=== PATIENT | male | born 1945 | race Caucasian/White ===

== ENCOUNTER 2019-12-29 14:18 | Emergency (ER) | payer OTHER, MEDICARE ==
[2019-12-29] MEDS ORDERED: Albuterol/Ipratropium 3.0-0.5 MG/3 ML Neb Soln NEB ONE (15:01)
[2019-12-29] MEDS ORDERED: methylPREDNISolone Sodium Succinate 125 MG/2 ML SDV IVPUSH ONE (15:01)
--- NOTE | 2019-12-29 15:07 | EDM.PDOC ---
ED HPI GENERAL MEDICAL PROBLEM - General Stated Complaint: [facility] Time Seen by Provider: 12/29/19 15:03 Source of Information: Reports: Patient History Limitations: Reports: No Limitations - History of Present Illness INITIAL COMMENTS - FREE TEXT/NARRATIVE: 5 days h/o fever cough congestion smoker body aches SOB, has neb and many Rx at home. - Related Data Allergies Allergy/AdvReac Type Severity Reaction Status Date / Time No Known Allergies Allergy Verified 12/29/19 14:56 Home Meds: Home Meds Cyclobenzaprine [Flexeril] 10 mg PO DAILY PRN 04/23/14 [History] Enalapril [Vasotec] 5 mg PO BID 04/23/14 [History] Sertraline [Zoloft] 100 mg PO DAILY 04/23/14 [History] Albuterol Sulfate [Proair Hfa] 2 puff INH Q6H PRN 12/29/19 [History] Albuterol [Proventil Neb Soln] 1.25 mg NEB Q6H 12/29/19 [History] Budesonide/Formoterol Fumarate [Budesonide-Formoterol 160-4.5] 2 puff INH BID [History] Diclofenac Sodium [Voltaren 1% Gel] 1 applic TOP QID PRN 12/29/19 [History] Finasteride 5 mg PO DAILY 12/29/19 [History] Gabapentin [Neurontin] 600 mg PO TID 12/29/19 [History] Polyethylene Glycol 3350 [Miralax] 17 gram PO DAILY PRN 12/29/19 [History] guaiFENesin [Guaifenesin] 400 mg PO TID PRN 12/29/19 [History] hydroCHLOROthiazide [Hydrochlorothiazide] 25 mg PO DAILY 12/29/19 [History] ED ROS GENERAL - Review of Systems Review Of Systems: Comprehensive ROS is negative, except as noted in HPI. ED EXAM, GENERAL - Physical Exam Exam: See Below Exam Limited By: No Limitations General Appearance: Alert, WD/WN, Mild Distress, Other (cough spasms) Ears: Hearing Grossly Normal Throat/Mouth: Normal Voice, No Airway Compromise Head: Atraumatic Neck: Non-Tender, Full Range of Motion Respiratory/Chest: No Accessory Muscle Use, Decreased Breath Sounds, Rhonchi, Wheezing Cardiovascular: Regular Rate, Rhythm GI/Abdominal: Soft, Non-Tender Neurological: Alert, Oriented, Normal Cognition, Normal Gait, No Motor/Sensory Deficits Psychiatric: Flat Affect Skin Exam: Warm, Dry, Normal Color Lymphatic: No Adenopathy Course - Vital Signs Last Recorded V/S: Last Vital Signs Temp Pulse 62 12/29/19 15:02 Resp BP Pulse Ox 96 12/29/19 15:02 - Orders/Labs/Meds Orders: Active Orders 24 hr Category Date Time Status RT Aerosol Therapy [RC] ASDIRECTED Care 12/29/19 15:02 Active Chest 2V [CR] Urgent Exams 12/29/19 15:02 Taken CULTURE STREP A CONFIRMATION [] Stat Lab 12/29/19 15:31 Results STREP SCRN A RAPID W CULT CONF [] Stat Lab 12/29/19 15:31 Results Sodium Chloride 0.9% [Normal Saline] 1,000 ml Med 12/29/19 15:15 Active IV ASDIRECTED Medication Orders Sodium Chloride (Normal Saline) 1,000 mls @ 500 mls/hr IV ASDIRECTED BRITNEY Last Admin: 12/29/19 15:52 Dose: 500 mls/hr Labs: Laboratory Tests 12/29/19 12/29/19 12/29/19 Range/Units 15:15 15:15 15:15 WBC 7.8 (5.0-10.0) 10^3/uL RBC 4.92 (4.6-6.2) 10^6/uL Hgb 15.3 (14.0-18.0) g/dL Hct 44.6 (40.0-54.0) % MCV 90.7 (80-100) fL MCH 31.1 (27.0-34.0) pg MCHC 34.3 (33.0-35.0) g/dL Plt Count 203 (150-450) 10^3/uL Neut % (Auto) 69.1 (42.2-75.2) % Lymph % (Auto) 17.5 L (20.5-50.1) % [place] % (Auto) 11.8 H (2-8) % Eos % (Auto) 1.5 (1.0-3.0) % Baso % (Auto) 0.1 (0.0-1.0) % Sodium 137 (135-145) mmol/L Potassium 3.3 L (3.6-5.0) mmol/L Chloride 102 (101-111) mmol/L Carbon Dioxide 26.0 (21.0-31.0) mmol/L Anion Gap 12.3 BUN 18 (7-18) mg/dL Creatinine 1.0 (0.6-1.3) mg/dL Est Cr Clr Drug Dosing TNP Estimated GFR (MDRD) > 60 BUN/Creatinine Ratio 18.00 Glucose 94 (74-105) mg/dL Lactic Acid 1.0 (0.5-2.0) mmol/L Calcium 8.6 (8.4-10.2) mg/dl Total Bilirubin 0.7 (0.2-1.0) mg/dL AST 22 (10-42) IU/L ALT 18 (10-60) IU/L Alkaline Phosphatase 53 (42-121) IU/L Total Protein 7.3 (6.7-8.2) g/dl Albumin 4.0 (3.2-5.5) g/dl Globulin 3.3 Albumin/Globulin Ratio 1.21 Meds: Medications Generic Name Dose Route Start Last Admin Trade Name Freq PRN Reason Stop Dose Admin Sodium Chloride 1,000 mls @ 500 mls/hr 12/29/19 15:15 12/29/19 15:52 Normal Saline IV 500 mls/hr ASDIRECTED BRITNEY Administration Discontinued Medications Generic Name Dose Route Start Last Admin Trade Name Freq PRN Reason Stop Dose Admin Albuterol/Ipratropium 3 ml 12/29/19 15:01 12/29/19 15:14 Duoneb 3.0-0.5 Mg/3 Ml NEB 12/29/19 15:02 3 ml ONETIME ONE Administration Methylprednisolone Sodium Succinate 125 mg 12/29/19 15:01 12/29/19 15:20 Solu-Medrol IVPUSH 12/29/19 15:02 125 mg ONETIME ONE Administration - Re-Assessments/Exams Free Text/Narrative Re-Assessment/Exam: 12/29/19 16:14 results discussed with pt who is feeling much better s/p duoneb + IV solu Departure - Departure Time of Disposition: 16:15 Disposition: Home, Self-Care 01 Condition: Good Clinical Impression: Influenza A, Bronchospasm with bronchitis, acute, Acute bronchospasm due to viral infection - Discharge Information Instructions: Viral Respiratory Infection, [id number] Forms: ED Department Discharge Additional Instructions: 1) rest 2) don't sleep flat at night 3) use neb treatment 4 times daily 4) drink lots of liquids 5) follow up at clinic rx given; medrol dospak tessalon pearles 100mg bid prn x 12 Sepsis Event Note - Focused Exam Vital Signs: Vital Signs Pulse Pulse Ox 12/29/19 15:02 62 96 Date Exam was Performed: 12/29/19 Time Exam was Performed: 16:14 - My Orders Last 24 Hours: My Active Orders 12/29/19 15:02 RT Aerosol Therapy [RC] ASDIRECTED Chest 2V [CR] Urgent 12/29/19 15:15 Sodium Chloride 0.9% [Normal Saline] 1,000 ml IV ASDIRECTED 12/29/19 15:31 CULTURE STREP A CONFIRMATION [RM] Stat STREP SCRN A RAPID W CULT CONF [RM] Stat - Assessment/Plan Last 24 Hours: My Active Orders 12/29/19 15:02 RT Aerosol Therapy [RC] ASDIRECTED Chest 2V [CR] Urgent 12/29/19 15:15 Sodium Chloride 0.9% [Normal Saline] 1,000 ml IV ASDIRECTED 12/29/19 15:31 CULTURE STREP A CONFIRMATION [RM] Stat STREP SCRN A RAPID W CULT CONF [RM] Stat
[2019-12-29] MEDS ORDERED: Sodium Chloride 0.9% 1,000 ML IV SCH (15:15)
[2019-12-29 15:16] VITALS: PULSE 62
[2019-12-29 15:42] LABS: ANION GAP 12.3; CHLORIDE,CL 102 mmol/L (101-111); SODIUM,NA 137 mmol/L (135-145)
[2019-12-29 16:18] VITALS: BP 113/63
== END 2019-12-29 16:48 | disposition home or self-care (01) ==
LOC: DL.ED 14:18
DX: J10.1 Influenza due to other identified influenza virus with other respiratory manifestations (principal); Z79.899 Other long term (current) drug therapy
CPT/HCPCS: 36415; 71046; 80053; 83605; 85025; 87081; 87430; 87804; 94640; 96361; 96374; 99284; J2930; J7030; J7620-GY

== ENCOUNTER 2021-08-11 18:20 | Emergency (ER) | payer OTHER, MEDICARE ==
[2021-08-11 20:15] VITALS: BP 96/55; PULSE 62
[2021-08-11 20:30] LABS: ANION GAP 11.1 mEq/L (7-13)
--- NOTE | 2021-08-11 21:33 | EDM.PDOC ---
ED HPI GENERAL MEDICAL PROBLEM - General Chief Complaint: Respiratory Problem Stated Complaint: COUGHING UP BLOOD Time Seen by Provider: 08/11/21 21:25 Source of Information: Reports: Patient - History of Present Illness INITIAL COMMENTS - FREE TEXT/NARRATIVE: Pt is here for a cough, fevers and shortness of breath that started yesterday. He noted that he just couldn't get warm yesterday and had his bring him extra blankets. He became worried when he coughed up a little blood this evening. He noted his fever was up to 102. He has body aches and nausea. He has been taking over the counter medications for his cold. He had both his COVID vaccines several months ago and is scheduled to get his booster in a month. No known sick contacts or exposure to COVID. He does wear oxygen at home at [facility]. Headache Pain Score (Numeric/FACES): 4 - Related Data Allergies Allergy/AdvReac Type Severity Reaction Status Date / Time No Known Allergies Allergy Verified 08/11/21 18:30 Home Meds: Home Meds Cyclobenzaprine [Flexeril] 10 mg PO DAILY PRN 04/23/14 [History] Enalapril [Vasotec] 5 mg PO BID 04/23/14 [History] Sertraline [Zoloft] 100 mg PO DAILY 04/23/14 [History] Albuterol Sulfate [Proair Hfa] 2 puff INH Q6H PRN 12/29/19 [History] Albuterol [Proventil Neb Soln] 1.25 mg NEB Q6H 12/29/19 [History] Budesonide/Formoterol Fumarate [Budesonide-Formoterol 160-4.5] 2 puff INH BID 12/29/19 [History] Diclofenac Sodium [Voltaren 1% Gel] 1 applic TOP QID PRN 12/29/19 [History] Finasteride 5 mg PO DAILY 12/29/19 [History] Gabapentin [Neurontin] 600 mg PO TID 12/29/19 [History] guaiFENesin [Guaifenesin] 400 mg PO TID PRN 12/29/19 [History] hydroCHLOROthiazide [Hydrochlorothiazide] 25 mg PO DAILY 12/29/19 [History] polyethylene glycoL 3350 [Miralax] 17 gram PO DAILY PRN 12/29/19 [History] Past Medical History Cardiovascular History: Reports: Hypertension Respiratory History: Reports: COPD, SOB, Other (See Below) Other Respiratory History: Home O2 2L/NC, 3L with activity Gastrointestinal History: Reports: Other (See Below) Other Gastrointestinal History: imoperable hernia. Genitourinary History: Reports: Prostate Disorder Musculoskeletal History: Reports: Back Pain, Chronic Social & Family History - Tobacco Use Tobacco Use Status *Q: Current Every Day Tobacco User Years of Tobacco use: 50 Packs/Tins Daily: 0.5 - Caffeine Use Caffeine Use: Reports: Coffee ED ROS GENERAL - Review of Systems Review Of Systems: Comprehensive ROS is negative, except as noted in HPI. ED EXAM, GENERAL - Physical Exam Exam: See Below Exam Limited By: No Limitations General Appearance: Alert, WD/WN, No Apparent Distress Eye Exam: Bilateral Eye: Normal Inspection Ears: Normal External Exam, Normal TMs Throat/Mouth: Normal Inspection, Normal Voice, No Airway Compromise Head: Atraumatic, Normocephalic Neck: Normal Inspection, Supple Respiratory/Chest: No Respiratory Distress, Lungs Clear, Normal Breath Sounds, No Accessory Muscle Use Cardiovascular: Normal Peripheral Pulses, Regular Rate, Rhythm, No Murmur GI/Abdominal: Soft, No Distention (Male) Exam: Deferred Rectal (Males) Exam: Deferred Back Exam: Normal Inspection, Full Range of Motion Extremities: Normal Range of Motion, No Pedal Edema, Normal Capillary Refill Neurological: Alert, Oriented, Normal Cognition, No Motor/Sensory Deficits Psychiatric: Normal Affect, Normal Mood Skin Exam: Warm, Dry, Intact, Normal Color, No Rash Lymphatic: No Adenopathy Course - Vital Signs Last Recorded V/S: Last Vital Signs Temp 98.9 F 08/11/21 20:00 Pulse 62 08/11/21 20:00 Resp 22 H 08/11/21 20:00 BP 96/55 L 08/11/21 20:00 Pulse Ox 95 08/11/21 20:00 - Orders/Labs/Meds Orders: Active Orders 24 hr Category Date Time Status Isolation [COMM] Routine Oth 08/11/21 19:48 Active Labs: Laboratory Tests 08/11/21 08/11/21 08/11/21 Range/Units 20:00 20:00 20:00 WBC 7.0 (5.0-10.0) 10^3/uL RBC 4.91 (4.6-6.2) 10^6/uL Hgb 15.2 (14.0-18.0) g/dL Hct 45.8 (40.0-54.0) % MCV 93.3 (80-100) fL MCH 31.0 (27.0-34.0) pg MCHC 33.2 (33.0-35.0) g/dL Plt Count 149 L (150-450) 10^3/uL Neut % (Auto) 65.4 (42.2-75.2) % Lymph % (Auto) 18.1 L (20.5-50.1) % [place] % (Auto) 15.8 H (2-8) % Eos % (Auto) 0.4 L (1.0-3.0) % Baso % (Auto) 0.3 (0.0-1.0) % D-Dimer, Quantitative 488 H (0-400) ng/mL Sodium (136-145) mmol/L Potassium (3.5-5.1) mmol/L Chloride (98-107) mmol/L Carbon Dioxide (21-32) mmol/L Anion Gap (7-13) mEq/L BUN (7-18) mg/dL Creatinine (0.70-1.30) mg/dL Est Cr Clr Drug Dosing mL/min Estimated GFR (MDRD) BUN/Creatinine Ratio (No establ ref range) Glucose (70-99) mg/dL Calcium (8.5-10.1) mg/dL Total Bilirubin (0.2-1.0) mg/dL AST (15-37) U/L ALT (16-63) U/L Alkaline Phosphatase (46-116) U/L Troponin I High Sens (<=76) pg/mL Total Protein (6.4-8.2) g/dL Albumin (3.4-5.0) g/dL Globulin Albumin/Globulin Ratio SARS-CoV-2 RNA (TATYANA) Positive H (NEGATIVE) 08/11/21 Range/Units 20:00 WBC (5.0-10.0) 10^3/uL RBC (4.6-6.2) 10^6/uL Hgb (14.0-18.0) g/dL Hct (40.0-54.0) % MCV (80-100) fL MCH (27.0-34.0) pg MCHC (33.0-35.0) g/dL Plt Count (150-450) 10^3/uL Neut % (Auto) (42.2-75.2) % Lymph % (Auto) (20.5-50.1) % [place] % (Auto) (2-8) % Eos % (Auto) (1.0-3.0) % Baso % (Auto) (0.0-1.0) % D-Dimer, Quantitative (0-400) ng/mL Sodium 141 (136-145) mmol/L Potassium 3.1 L (3.5-5.1) mmol/L Chloride 100 (98-107) mmol/L Carbon Dioxide 33 H (21-32) mmol/L Anion Gap 11.1 (7-13) mEq/L BUN 20 H (7-18) mg/dL Creatinine 1.38 H (0.70-1.30) mg/dL Est Cr Clr Drug Dosing 50.02 mL/min Estimated GFR (MDRD) 50 BUN/Creatinine Ratio 14.5 (No establ ref range) Glucose 115 H (70-99) mg/dL Calcium 8.3 L (8.5-10.1) mg/dL Total Bilirubin 0.5 (0.2-1.0) mg/dL AST 19 (15-37) U/L ALT 23 (16-63) U/L Alkaline Phosphatase 79 (46-116) U/L Troponin I High Sens 6 (<=76) pg/mL Total Protein 6.9 (6.4-8.2) g/dL Albumin 3.4 (3.4-5.0) g/dL Globulin 3.5 Albumin/Globulin Ratio 1.0 SARS-CoV-2 RNA (TATYANA) (NEGATIVE) - Re-Assessments/Exams Free Text/Narrative Re-Assessment/Exam: Discussed diagnosis with the pt. He would be a candidate for infusion treatment, but it is not available at this time. Recommended pt call his PCP tomorrow morning to discuss treatment. Reviewed reasons to call/return to the ER if needed. Pt verbalized understanding. 08/11/21 22:13 Departure - Departure Time of Disposition: 22:02 Disposition: Home, Self-Care 01 Condition: Fair Clinical Impression: COVID-19 - Discharge Information *PRESCRIPTION DRUG MONITORING PROGRAM REVIEWED*: Not Applicable *COPY OF PRESCRIPTION DRUG MONITORING REPORT IN PATIENT BRAIN: Not Applicable Instructions: 10 Things You Can Do to Manage Your COVID-19 Symptoms at Home - [facility] (05/06/2021) Forms: ED Department Discharge Additional Instructions: Contact your primary care provider tomorrow to see about outpatient infusion medication for COVID Follow the current quarantine requirements per the CDC If your symptoms worsen, call/return to the ER. Sepsis Event Note (ED) - Evaluation Sepsis Screening Result: No Definite Risk - Focused Exam Vital Signs: Vital Signs Temp Pulse Resp BP Pulse Ox 08/11/21 20:00 98.9 F 62 22 H 96/55 L 95 08/11/21 18:30 98.4 F 74 20 129/75 95 - My Orders Last 24 Hours: My Active Orders 08/11/21 19:48 Isolation [COMM] Routine - Assessment/Plan Last 24 Hours: My Active Orders 08/11/21 19:48 Isolation [COMM] Routine
== END 2021-08-11 22:17 | disposition home or self-care (01) ==
LOC: DL.ED 18:20
DX: U07.1 COVID-19 (principal); J44.9 Chronic obstructive pulmonary disease, unspecified; I10 Essential (primary) hypertension; Z72.0 Tobacco use; Z79.899 Other long term (current) drug therapy
CPT/HCPCS: 36415; 80053; 84484; 85025; 85379; 87804; 93005; 99285-25; U0002

== ENCOUNTER 2022-12-10 09:59 | Emergency (ER) | payer OTHER ==
[2022-12-10] MEDS ORDERED: Lactated Ringers 1,000 ML IV ONE (10:18)
[2022-12-10 10:20] VITALS: BP 127/103; PULSE 104
[2022-12-10 10:44] LABS: PTT,PARTIAL THROMBOPLSTIN TIME 26.1 SEC (22.0-34.0)
[2022-12-10 10:55] LABS: ANION GAP 9.3 mEq/L (7-13); CHLORIDE,CL 93 mmol/L (98-107); SODIUM,NA 135 mmol/L (136-145)
[2022-12-10 10:57] LABS: ESTIMATED GFR 70 mL/min (>=60)
== END 2022-12-10 11:05 ==
LOC: DL.ED 09:59
DX: I63.9 Cerebral infarction, unspecified (principal); J44.9 Chronic obstructive pulmonary disease, unspecified; I10 Essential (primary) hypertension; Z79.899 Other long term (current) drug therapy; Z86.16 Personal history of COVID-19; Z20.822 Contact with and (suspected) exposure to COVID-19
CPT/HCPCS: 36415; 70450; 80053; 80307; 81001; 82947; 83605; 84484; 85025; 85610; 85730; 87635; 93005; 93010; 96360; 99285; J7120; U0002

== ENCOUNTER 2025-04-09 09:03 | Emergency (ER) | payer OTHER ==
[~2025-04-09 09:03] MED LIST: Tranexamic Acid 1,000 MG/10 ML Vial ONE
[2025-04-09] MEDS ORDERED: Sodium Chloride 0.9% 10 ML Syringe FLUSH PRN (09:07)
[2025-04-09 09:23] LABS: HEMATOCRIT 31.4 % (40.0-54.0); HEMOGLOBIN 10.2 g/dL (14.0-18.0); MEAN CORPUSCULAR HEMOGLOBIN 32.3 pg (27.0-34.0); MEAN CORPUSCULAR HGB CONC 32.5 g/dL (33.0-35.0); MEAN CORPUSCULAR VOLUME 99.4 fL (80-100); PLATELET COUNT,PLT 401 10^3/uL (150-450); RED BLOOD CELL COUNT 3.16 10^6/uL (4.6-6.2); WHITE BLOOD CELL COUNT,WBC 20.3 10^3/uL (5.0-10.0)
[2025-04-09] MEDS: TRANEXAMIC ACID IV ONE (09:24)
[2025-04-09] MEDS: SODIUM CHLORIDE 0.9% IV ONE (09:24)
[2025-04-09 09:35] LABS: BASOPHILS PERCENT AUTO 0.1 % (0.0-1.0); EOSINOPHILS PERCENT AUTO 0.6 % (1.0-3.0); MONOCYTES PERCENT AUTO 6.5 % (2-8); NEUTROPHILS PERCENT AUTO 81.8 % (42.2-75.2)
[2025-04-09] MEDS: Norepinephrine Bit/D5W Premix 250 ML IV SCH (09:37)
[2025-04-09 09:45] LABS: ALANINE AMINOTRANSFERASE,ALT 13 U/L (16-63); ALBUMIN 2.6 g/dL (3.4-5.0); ALKALINE PHOSPHATASE 65 U/L (46-116); ANION GAP 13.8 mEq/L (7-13); ASPARTATE AMNIOTRANSFERASE,AST 12 U/L (15-37); BILIRUBIN TOTAL 0.5 mg/dL (0.2-1.0); BLOOD UREA NITROGEN,BUN 28 mg/dL (7-18); BUN/CREATININE RATIO 16.1 (No establ ref range); CALCIUM 8.7 mg/dL (8.5-10.1); CARBON DIOXIDE,CO2 30 mmol/L (21-32); CHLORIDE,CL 104 mmol/L (98-107); CREATININE 1.74 mg/dL (0.70-1.30); GLUCOSE RANDOM 166 mg/dL (70-99); MAGNESIUM 1.9 mg/dL (1.8-2.4); POTASSIUM,K 3.8 mmol/L (3.5-5.1); PROTEIN TOTAL,TP 5.7 g/dL (6.4-8.2); SODIUM,NA 144 mmol/L (136-145)
[2025-04-09 09:46] LABS: B-TYPE NATRIURETIC PEPTIDE,BNP 32 pg/ml (0-100)
[2025-04-09 09:49] LABS: A/G RATIO 0.84; ESTIMATED GFR 40 mL/min (>=60)
[2025-04-09 09:56] LABS: INR 1.1 (0.9-1.2)
[2025-04-09] MEDS: Sodium Chloride 0.9% 500 ML IV SCH ×2 (10:00→10:15)
[2025-04-09] MEDS: Piperacillin/Tazobactam 4.5 GM in Sodium Chloride 0.9% 100 ML IV ONE (10:02)
[2025-04-09] MEDS: Sodium Chloride 0.9% 1,000 ML IV SCH (10:22)
[2025-04-09 10:25] LABS: LYMPHOCYTES PERCENT MAN 11 % (20-50); MONOCYTES PERCENT MAN 6 % (2-8); SEG NEUTROPHILS PERCENT MAN 83 % (42-75)
[2025-04-09] MEDS: Tranexamic Acid 1,000 MG/10 ML Vial ONE (12:41)
[2025-04-09 12:56] VITALS: BP 97/60; PULSE 69
== END 2025-04-09 11:03 ==
LOC: DL.ED 09:03
DX: K92.2 Gastrointestinal hemorrhage, unspecified (principal); I95.9 Hypotension, unspecified; D72.825 Bandemia; I10 Essential (primary) hypertension; J44.89 Other specified chronic obstructive pulmonary disease; Z86.16 Personal history of COVID-19; Z79.899 Other long term (current) drug therapy; Z79.51 Long term (current) use of inhaled steroids
CPT/HCPCS: 36415; 36430; 80053; 82272; 83605; 83735; 83880; 84484; 85025; 85610; 85730; 86850; 86900; 86901; 86920; 86922; 87040; 93005; 96365; 96368; 96375; 99285; J2543; J7030; J7040; P9016